=== PATIENT | female | born 1970 | race Caucasian/White ===

== ENCOUNTER 2020-07-02 11:35 | Inpatient (IN) | payer MEDICAID, SELFPAY ==
[~2020-07-02] VITALS: Ht 157.5 cm; Wt 65.8 kg
[2020-07-02 11:39] VITALS: BP 144/85
--- NOTE | 2020-07-02 11:43 | NUR ---
Dante sy in [facility] - 07/02/20 at 1145 by MERT Patient ambulated to bed 03 with steady/even gait.
--- NOTE | 2020-07-02 11:45 | NUR ---
Patient ambulated to bed 3. RN evaluating the patient at bedside.
--- NOTE | 2020-07-02 11:46 | NUR ---
Patient ambulated to restroom for urine sample collection.
--- NOTE | 2020-07-02 11:50 | NUR ---
50 y/o F coming in from home with c/c abdominal pain, N/V, and dysuria. Patient states abdominal pain since 03/13/2020 with history of acid reflux. Pt states she took prescribed Prilosec without relief. Patient describes abdominal pain epigastric region, 8/10, pulsating/intermittent that radiates to her back. Patient states associated N/V x 2 episodes clear/yellow, denies any blood in emesis. Patient states dysuria yesterday AM and fever last night but denied pain last night. Pt denies dizziness, headache, other urinary symptoms, chest pain. Oral temperature 97.9. Last BM today; pt states small bowel movement "slight constipation." Pt placed onto gown, quality assurance monitor body. Blood pressure 163/97. Bowel sounds normoactive x 4 quadrants. Bed locked in lowest position, side rails x 1, call light in reach. PMH: Acid reflux Meds: Prilosec NKA Sx: Denies
--- NOTE | 2020-07-02 11:55 | NUR ---
Dr. Lindsey is evaluating patient at bedside.
[2020-07-02] MEDS ORDERED: MORPHINE SULFATE 4 MG/ML SYR IVP ONE (12:05)
[2020-07-02] MEDS ORDERED: ONDANSETRON 4 MG/2 ML VIAL IVP ONE (12:05)
[2020-07-02] MEDS ORDERED: NACL 0.9% 1,000 ML IV SCH (12:05)
--- NOTE | 2020-07-02 12:13 | NUR ---
ULTRASOUND AT BEDSIDE
[2020-07-02 12:56] LABS: BASOPHILS % (AUTO) 0.5 % (0.0-2.0); EOSINOPHILS # (AUTO) 0.2 K/uL (0-0.4); EOSINOPHILS % (AUTO) 2.9 % (0.0-4.0); HEMATOCRIT 37.8 % (36-48); HEMOGLOBIN 12.8 g/dL (12.0-16.0); LYMPHOCYTES # (AUTO) 1.5 K/uL (2.5-16.5); LYMPHOCYTES % (AUTO) 20.7 % (20.5-51.1); MEAN CORPUSCULAR HEMOGLOBIN 31 pg (27-31); MEAN CORPUSCULAR HGB CONC 34 g/dL (33-37); MEAN CORPUSCULAR VOLUME 91.8 fL (80-94); MONOCYTES # (AUTO) 0.7 K/uL (0.8-1.0); NEUTROPHILS # (AUTO) 4.8 K/uL (1.8-7.7); NEUTROPHILS % (AUTO) 65.9 % (42.2-75.2); PLATELET COUNT (AUTO) 258 K/uL (140-450); RED BLOOD CELL COUNT(AUTO) 4.12 MIL/uL (4.20-5.40); RED CELL DISTRIBUTION WIDTH 14.7 % (11.6-13.7); WHITE BLOOD COUNT (AUTO) 7.3 K/uL (4.8-10.8)
--- NOTE | 2020-07-02 13:00 | NUR ---
Patient resting in position of comfort; semi-fowlers. Patient denies any nausea at this time and states pain /10. nuclear monitoring technician remains in place. Respirations even/unlabored. Bed locked in lowest position, side rails x 1, call light in reach.
--- NOTE | 2020-07-02 13:00 | NUR ---
LAB AT BEDSIDE
--- NOTE | 2020-07-02 13:00 | NUR ---
Urine sample, Covid inocente swab, and blood samples handed to faby Locke in patient bed 03.
[2020-07-02 13:07] LABS: ALBUMIN 3.9 g/dL (3.4-5.0); ANION GAP 12.6 (8-16); CARBON DIOXIDE 26.2 mmol/L (21-32); CREATININE 0.6 mg/dL (0.6-1.3); POTASSIUM 3.8 mmol/L (3.5-5.1); TOTAL BILIRUBIN 0.9 mg/dL (0.0-1.0)
[2020-07-02 13:22] LABS: APPEARANCE,URINE CLEAR (CLEAR); BILIRUBIN,URINE NEGATIVE (NEGATIVE); BLOOD, URINE NEGATIVE (NEGATIVE); COLOR,URINE YELLOW (YELLOW); LEUKOCYTE ESTERASE ,URINE 1+ (NEGATIVE); NITRITE, URINE NEGATIVE (NEGATIVE); PH,URINE 7.5 (5.0-9.0); UGLUCOSE NEGATIVE (NEGATIVE)
--- NOTE | 2020-07-02 13:28 | NUR ---
Patient ambulated to restroom with steady/even gait.
--- NOTE | 2020-07-02 13:28 | NUR ---
Patient states pain 4/10; denies any nausea at this time. hall monitor remains in place. Bed locked in lowest position, side rails x 1, call light in reach.
[2020-07-02 13:30] LABS: RBC,URINE NONE SEEN /HPF (0-5); WBC,URINE 0-5 /HPF (0-5)
[2020-07-02] MEDS ORDERED: DEXT 5% / NACL 0.9% 1,000 ML IV ONE (13:55)
[2020-07-02] MEDS ORDERED: OMEP20EC11 PO (14:34)
--- NOTE | 2020-07-02 14:34 | NUR ---
Dr. Ramon notified of requested consultation.
--- NOTE | 2020-07-02 14:40 | NUR ---
Attempted to contact LUIS FELIPE Crowe via telephone for report; advised she is on lunch break and to call back in 30 minutes ([phone]).
--- NOTE | 2020-07-02 14:41 | NUR ---
Patient resting in position of comfort; semi-fowlers. Patient denies any nausea and pain; 0/10 at this time. monitor car operator remains in place. Respirations even/unlabored. Bed locked in lowest position, side rails x 1, call light in reach.
--- NOTE | 2020-07-02 15:14 | NUR ---
Report given to LUIS FELIPE Crowe via telephone.
--- NOTE | 2020-07-02 15:35 | NUR ---
Patient will be admitted to care of Dr. Roblero. Admited to Med/Surg. Will go to room 106-B. Belongings list completed. Report to LUIS FELIPE Crowe.
--- NOTE | 2020-07-02 15:45 | NUR ---
REC' PT FROM ED. BENGALI SPEAKING A/OX4. RA. ABD SOFT NON TENDER. NO PERIPHERAL EXTREMITY EDEMA. DENIES PAIN AT THIS TIME, HAS PERSONAL BELONGINGS AT BEDSIDE. CAN AMBULATE TO RESTROOM. CURRENTLY NPO. R.AC 20G DRY, CLEAN,INTACT, WILL CONTINUE TO MONITOR
[2020-07-02] MEDS ORDERED: ZOLPIDEM 5 MG TAB PO PRN (16:00)
[2020-07-02] MEDS ORDERED: guaiFENesin DM 200/20 MG-10 ML 10 ML UDC PO PRN (16:00)
[2020-07-02] MEDS ORDERED: ACETAMINOPHEN 325 MG TAB PO PRN (16:00)
[2020-07-02] MEDS ORDERED: DOCUSATE SODIUM 100 MG GELCAP PO PRN (16:00)
[2020-07-02] MEDS ORDERED: POTASSIUM CHLORIDE 10 MEQ TABER PO PRN (16:00)
[2020-07-02] MEDS ORDERED: HYDROcodone/APAP 7.5/325 MG 1 TAB PO PRN (16:00)
[2020-07-02 17:15] LABS: FREE T4 (FREE THYROXINE) 0.88 ng/dL (0.76-1.46); MAGNESIUM 2.4 mg/dL (1.8-2.4); PHOSPHORUS 4.2 mg/dL (2.5-4.9); THYROID STIMULATING HORMONE 1.7 uIU/mL (0.34-3.74)
[2020-07-02 17:28] LABS: BARBITURATE, URINE NEGATIVE ng/ml (NEG <=200); BENZODIAZEPINE, URINE NEGATIVE ng/mL (NEG <=200); CANNABINOID, URINE NEGATIVE ng/mL (NEG <=50); COCAINE, URINE NEGATIVE ng/mL (NEG <=300); OPIATE, URINE NEGATIVE ng/mL (NEG <=2000); PHENCYCLIDINE SCREEN,URINE NEGATIVE ng/mL (NEG <=25)
[2020-07-02 17:38] LABS: BASOPHILS % (AUTO) 0.5 % (0.0-2.0); EOSINOPHILS # (AUTO) 0.1 K/uL (0-0.4); EOSINOPHILS % (AUTO) 1.9 % (0.0-4.0); HEMATOCRIT 36.5 % (36-48); HEMOGLOBIN 12.3 g/dL (12.0-16.0); LYMPHOCYTES # (AUTO) 1.7 K/uL (2.5-16.5); LYMPHOCYTES % (AUTO) 22.4 % (20.5-51.1); MEAN CORPUSCULAR HEMOGLOBIN 31 pg (27-31); MEAN CORPUSCULAR HGB CONC 34 g/dL (33-37); MEAN CORPUSCULAR VOLUME 92.1 fL (80-94); MONOCYTES # (AUTO) 0.8 K/uL (0.8-1.0); MONOCYTES % (AUTO) 11.3 % (1.7-9.3); NEUTROPHILS # (AUTO) 4.8 K/uL (1.8-7.7); NEUTROPHILS % (AUTO) 63.9 % (42.2-75.2); PLATELET COUNT (AUTO) 241 K/uL (140-450); RED BLOOD CELL COUNT(AUTO) 3.97 MIL/uL (4.20-5.40); RED CELL DISTRIBUTION WIDTH 14.7 % (11.6-13.7); WHITE BLOOD COUNT (AUTO) 7.5 K/uL (4.8-10.8)
--- NOTE | 2020-07-02 17:50 | NUR ---
COLLECTED MRSA L/R NARES. SUBMITTED TO LAB
--- NOTE | 2020-07-02 19:10 | NUR ---
ENDORSED PT TO COAL PICKER NURSE, RA. PT STABLE. NO SIGN OF DISTRESS . CALL LIGHT WITHIN REACH. ALL SAFETY MEASURES IN PLACE
--- NOTE | 2020-07-02 19:38 | NUR ---
RECEIVED BEDSIDE ENDORSEMENT FROM AM SHIFT RN. AAOX4, ON ROOM AIR, AMBULATORY, DENIES PAIN, SALINE LOCK, SAFETY MEASURES IN PLACE, PLAN OF CARE DISCUSSED, CALL LIGHT WITHIN REACH.
[2020-07-02 20:00] VITALS: BP 124/85
[2020-07-02] MEDS: ONDANSETRON 4 MG/2 ML VIAL IM/IVP PRN (20:11)
--- NOTE | 2020-07-02 21:21 | NUR ---
RECEIVED A CALL FROM MORRIS FROM NUCLEAR MED, HE SAID THAT HE WILL DO HIDA SCAN TOMORROW 07/03/20 AT 0800.
--- NOTE | 2020-07-03 00:16 | NUR ---
PT ASLEEP, RESPIRATION EVEN AND UNLABORED, NOTED CHEST RISE, CALL LIGHT WITHIN REACH.
--- NOTE | 2020-07-03 02:04 | NUR ---
SLEEPING, CHEST RISE NOTED, KEPT WARM AND COMFORTABLE, CALL LIGHT WITHIN REACH.
[2020-07-03 04:00] VITALS: BP 107/69
--- NOTE | 2020-07-03 04:00 | NUR ---
V/S TAKEN, TRIED TO OBTAIN CONSENT, PT SAID THAT SHE WANTS TO TALK TO THE DR FIRST BEFORE SHE WILL SIGN.
[2020-07-03 06:34] LABS: BASOPHILS % (AUTO) 0.5 % (0.0-2.0); EOSINOPHILS # (AUTO) 0.2 K/uL (0-0.4); EOSINOPHILS % (AUTO) 2.9 % (0.0-4.0); HEMATOCRIT 37.9 % (36-48); HEMOGLOBIN 12.6 g/dL (12.0-16.0); LYMPHOCYTES # (AUTO) 1.9 K/uL (2.5-16.5); LYMPHOCYTES % (AUTO) 22.8 % (20.5-51.1); MEAN CORPUSCULAR HEMOGLOBIN 31 pg (27-31); MEAN CORPUSCULAR HGB CONC 33 g/dL (33-37); MEAN CORPUSCULAR VOLUME 92.8 fL (80-94); MONOCYTES # (AUTO) 0.9 K/uL (0.8-1.0); MONOCYTES % (AUTO) 11.1 % (1.7-9.3); NEUTROPHILS # (AUTO) 5.1 K/uL (1.8-7.7); NEUTROPHILS % (AUTO) 62.7 % (42.2-75.2); PLATELET COUNT (AUTO) 256 K/uL (140-450); RED BLOOD CELL COUNT(AUTO) 4.09 MIL/uL (4.20-5.40); WHITE BLOOD COUNT (AUTO) 8.2 K/uL (4.8-10.8)
--- NOTE | 2020-07-03 06:54 | NUR ---
SLEEPING, AROUSABLE TO VERBAL, ALL NEEDS ATTENDED, KEPT COMFORTABLE, NO ACUTE CHANGES OVERNIGHT, CALL LIGHT WITHIN REACH.
--- NOTE | 2020-07-03 07:05 | NUR ---
RECEIVED REPORT FROM NIGHT NURSE FOR CONTINUITY OF CARE. PT IS STABLE. PT SITTING BY THE SIDE OF THE BED, NO SIGNS OF DISTRESS NOTED. PT ON ROOM AIR. PT HAS RAC 20G SALINE LOCK. SAFETY MEASURES IN PLACE, WILL CONTINUE TO MONITOR.
--- NOTE | 2020-07-03 07:16 | NUR ---
PT STABLE, BEDSIDE ENDORSEMENT GIVEN TO AM SHIFT RN FOR CONTINUITY OF CARE. ALSO ENDORSED NOT TO GIVE ANY OPIOIDS BEFORE THE HIDA SCAN PROCEDURE.
[2020-07-03 07:25] LABS: ANION GAP 11.1 (8-16); CARBON DIOXIDE 26.8 mmol/L (21-32); CREATININE 0.7 mg/dL (0.6-1.3); POTASSIUM 3.9 mmol/L (3.5-5.1)
[2020-07-03 08:00] VITALS: BP 145/98
[2020-07-03 08:08] LABS: T4 (THYROXINE) 6.9 ug/dL (4.5-12.0)
--- NOTE | 2020-07-03 08:10 | NUR ---
RECEIVED VERBAL ORDER FROM DR TALAVERA TO CANCEL THE HIDA SCAN. NOTIFIED NUCLEAR Schoo TECH AND INPUT THE ORDER.
--- NOTE | 2020-07-03 08:33 | NUR ---
RECEIVED FNS REFERRAL FOR NAUSEA >3 DAYS AND VOMITING >3 DAYS, NOT ACCURATE. PER MD'S NOTE PATIENT HAD VOMITING X1 DAY. PATIENT HAS BEEN SCREENED AND CATEGORIZED LOW NUTRITION RISK. PATIENT WILL BE SEEN WITHIN 7 DAYS OF ADMISSION. 07/09/[address]
--- NOTE | 2020-07-03 08:58 | NUR ---
DC PLANNIN YRS OPLD FEMALE PATIENT WAS ADMITTED FROM HOME WITH A DXOF ACUTE CHOLECYSTITIS. PT HAS A HX OF GERD. CXR AND RAPID COVID TEST NEGATIVE. GB ULTRASOUND SHOWED ACUTE CHOLECYSTITIS. ADMINISTERED IVF, IV ABX ROCEPHIN AND PAIN MEDS. CONSULTED WITH DR TALAVERA SURGEON FOR POSSIBLE LAP DESIREE. DC PLAN TO GO HOME WHEN STABLE. CM TO FOLLOW
[2020-07-03] MEDS: PANTOPRAZOLE 40 MG TABEC PO SCH (09:00)
[2020-07-03] MEDS ORDERED: LIDOCAINE 1% 500 MG/50 ML VIAL ONE (09:10)
[2020-07-03] MEDS ORDERED: BUPIVACAINE-MPF/EPI 0.5% 30 ML VIAL INJ ONE (09:17)
[2020-07-03] MEDS ORDERED: SUCCINYLCHOLINE CHLORIDE 200 MG/10 ML VIAL IVP ONE (09:45)
[2020-07-03] MEDS ORDERED: LIDOCAINE 2% 100 MG/5 ML SYR IVP ONE (09:45)
[2020-07-03] MEDS ORDERED: KETOROLAC 30 MG/ML VIAL ONE (09:45)
[2020-07-03] MEDS ORDERED: ROCURONIUM 50 MG/5 ML VIAL IV ONE (09:45)
[2020-07-03] MEDS ORDERED: MIDAZOLAM 2 MG/2 ML VIAL ONE (09:45)
[2020-07-03] MEDS ORDERED: SUGAMMADEX SODIUM 200 MG/2 ML VIAL IV ONE (09:45)
[2020-07-03] MEDS ORDERED: fentaNYL citrate 0.05 MG/ML VIAL ONE (09:45)
[2020-07-03] MEDS ORDERED: DEXAMETHASONE 4 MG/ML VIAL ONE (09:45)
[2020-07-03] MEDS ORDERED: SEVOFLURANE 250 ML BTL INH ONE (09:45)
[2020-07-03] MEDS ORDERED: PROPOFOL 200 MG/20 ML VIAL IV ONE (09:45)
[2020-07-03] MEDS ORDERED: METOCLOPRAMIDE 10 MG/2 ML INJ VIAL ONE (09:45)
[2020-07-03] MEDS ORDERED: diphenhydrAMINE 50 MG/ML VIAL IVP PRN (10:40)
[2020-07-03] MEDS ORDERED: HYDROmorphone 1 MG/ML AMP IVP PRN ×3 (10:40→15:00)
[2020-07-03] MEDS ORDERED: ONDANSETRON 4 MG/2 ML VIAL IVP PRN (10:40)
[2020-07-03] MEDS ORDERED: MEPERIDINE 25 MG/ML SYR IVP PRN (10:40)
[2020-07-03] MEDS ORDERED: HYDROcodone/APAP 5/325 MG 1 TAB TAB PO PRN ×2 (10:40→19:45)
[2020-07-03] MEDS ORDERED: MEPERIDINE 25 MG/ML SYR ONE (10:53)
--- NOTE | 2020-07-03 11:20 | NUR ---
RECEIVED PT FROM OR NURSE. PT IS S/P CHOLECYSTECTOMY. PT HAS 4 ABD INCISION WITH ÁLVARO MARTINEZ. PT ON LR AT 120 ML/H, WILL CONTINUE TO MONITOR
[2020-07-03] MEDS: LACTATED RINGERS 1,000 ML IV SCH ×2 (11:25→19:00)
--- NOTE | 2020-07-03 11:28 | NUR ---
SOCIAL WORK NOTE: Patient's Orientation Unable To Assess Information Provided By AYAN ANTOINE - SON Comments SW WAS UNABLE TO MEET PATIENT AT BEDSIDE. SW COMPLETED ASSESSMENT WITH PATIENT'S SON. Facility Supervisor, Realtionship and Phone Number AYAN CASTRO [phone] [facility] Power of Health Care Manager No Does Patient Have a POLST No Identifying Problems No Social Work Triggers Is A Social Work Consult Needed No Mandate Report Filed No Explanation Of Identifying Problems PATIENT IS A 50-YEAR-OLD FEMLAE ADMITTED FOR ACUTE CHOLECYSTITIS. PATIENT HAS PMHX OF GERD. PATIENT'S SON REPORTED NO HX OF MENTAL HEALTH OR SUBSTANCE ABUSE. Admitted From Home Pre-Admission Level Of Functioning Status Independent/Ambulatory Prior Resources/Services Used In Last 12 Months No Prior Resources Used Prior DME No Prior DME Used Dialysis Comments N/A Living Situation Lives With Family House Patient Had Caregiver No Home Support No Caregiver Issues Financial Issues No Known Financial Issue Referral To The Financial Counselor Needed No Factors/Needs No D/C Needs Identified Pt/Rep Participated In Discharge Plan Yes Patient/Family Agress With Discharge Plan Yes Discharge Plan Comments TENTATIVE DISCHARGE PLAN IS FOR PATIENT TO RETURN HOME. DC Plan Status Initiated
--- NOTE | 2020-07-03 11:35 | NUR ---
ADMINISTERED DILAUDID FOR ABD PAIN 10/10, MEDICATION EDUCATION PROVIDED. EDUCATED PT ON USE OF INCENTIVE SPIROMETER. PT DEMONSTRATED USAGE. PT TOLERATED WELL, WILL CONTINUE TO MONITOR.
--- NOTE | 2020-07-03 13:32 | NUR ---
ADMINISTERED SCHEDULED MEDICATION, MEDICATION EDUCATION PROVIDED. PT VERBALIZED UNDERSTANDNG, PT TOLERATED WELL. WILL CONTINUE TO MONITOR.
--- NOTE | 2020-07-03 14:26 | NUR ---
ADMINISTERED NORCO FOR ABD PAIN, 08/21. MEDICATION EDUCATION PROVIDED. PT TOLERATED WELL. WILL CONTINUE TO MONITOR.
--- NOTE | 2020-07-03 15:28 | NUR ---
PT CONTINUES TO HAVE ABDOMINAL PAIN, NOTIFIED DR MCKEON, AWAITING ORDERS. WILL CONTINUE TO MONITOR.
--- NOTE | 2020-07-03 15:42 | NUR ---
RECEIVED TORB FROM DR MCKEON TO CHANGE DILAUDID Q4H PRN AND GIVE NOW. WILL INPUT ORDER AND CARRY IT OUT.
[2020-07-03] MEDS: HYDROmorphone 1 MG/ML AMP IVP PRN ×2 (15:57→20:51)
[2020-07-03 16:00] VITALS: BP 148/86
--- NOTE | 2020-07-03 16:02 | NUR ---
ADMINISTERED DILAUDID FOR SEVERE ABD PAIN, MEDICATION EDUCATION PROVIDED. PT VERBALIZED UNDERSTANDING. WILL CONTINUE TO MONITOR.
--- NOTE | 2020-07-03 19:20 | NUR ---
NOTIFIED DR MCKEON PT NEEDS MORE PAIN COVERAGE. PT IS REQUESTING PAIN MEDICATION AND SHE ONLY HAS DILAUDID PRN Q4H AND NORCO Q6H, HER PAIN IS NOT COVERED. ENDORSE PT TO NIGHT NURSE FOR CONTINUITY OF CARE
[2020-07-03 20:00] VITALS: BP 154/87
--- NOTE | 2020-07-03 20:00 | NUR ---
PATIENT RECEIVED IN BED C/O PAIN IN HER ABD RELATED TO NEW SX DONE, 12/21, WE WERE STILL EXCHANGING SHIFT REPORT.
--- NOTE | 2020-07-03 20:01 | NUR ---
MESSAGE SENT TO DR. Mg MCKEON CONCERNING PAIN OF THE PATIENT, V/S WERE STATED TO THE MESSAGE 96.8 f, 18, 78, 154/87, 97% RA.
--- NOTE | 2020-07-03 20:05 | NUR ---
MADE NEW ORDER TO TITRATE FREQUENCY OF NORCO 5/325 MG FROM Q 6 HOUR TO Q 4 HOURS, PATIENT WAS MEDICATED WITH 1 DOSE OF NORCO 5/325 MG BY MOUTH. TO F/U AFTER AN HOUR.
--- NOTE | 2020-07-03 20:11 | NUR ---
NSS 1 LITER WAS REPLACED NEW BAG.
[2020-07-03] MEDS: ONDANSETRON 4 MG/2 ML VIAL IM/IVP PRN (20:55)
[2020-07-04] MEDS: HYDROmorphone 1 MG/ML AMP IVP PRN ×4 (02:50→20:17)
[2020-07-04] MEDS: ONDANSETRON 4 MG/2 ML VIAL IM/IVP PRN ×3 (02:56→20:34)
[2020-07-04] MEDS: LACTATED RINGERS 1,000 ML IV SCH ×3 (03:13→23:31)
[2020-07-04 04:00] VITALS: BP 12/68
[2020-07-04 07:13] LABS: BASOPHILS % (AUTO) 0.1 % (0.0-2.0); HEMATOCRIT 34.7 % (36-48); HEMOGLOBIN 11.6 g/dL (12.0-16.0); LYMPHOCYTES # (AUTO) 1.7 K/uL (2.5-16.5); LYMPHOCYTES % (AUTO) 12.2 % (20.5-51.1); MEAN CORPUSCULAR HEMOGLOBIN 31 pg (27-31); MEAN CORPUSCULAR HGB CONC 34 g/dL (33-37); MEAN CORPUSCULAR VOLUME 91.4 fL (80-94); MONOCYTES # (AUTO) 1.6 K/uL (0.8-1.0); MONOCYTES % (AUTO) 11.6 % (1.7-9.3); NEUTROPHILS # (AUTO) 10.4 K/uL (1.8-7.7); NEUTROPHILS % (AUTO) 76.1 % (42.2-75.2); PLATELET COUNT (AUTO) 258 K/uL (140-450); RED CELL DISTRIBUTION WIDTH 14.5 % (11.6-13.7); WHITE BLOOD COUNT (AUTO) 13.6 K/uL (4.8-10.8)
[2020-07-04 07:25] LABS: ANION GAP 11.5 (8-16); CARBON DIOXIDE 24.3 mmol/L (21-32); CREATININE 0.6 mg/dL (0.6-1.3); POTASSIUM 3.8 mmol/L (3.5-5.1)
[2020-07-04 08:00] VITALS: BP 127/78
--- NOTE | 2020-07-04 08:00 | NUR ---
RECEIVED BEDSIDE REPORT FROM DAY SHIFT NURSE. PATIENT IS AWAKE, ALERT, AND COOPERATIVE. RESPIRATION EVEN UNLABORED ON ROOM AIR. NO DISTRESS NOTED. SKIN IS WARM AND DRY. PATIENT IS S/P LAP DESIREE POD#1 WITH 3 INCISION NOTED IN ABD NO SWELLING, REDNESS, AND DRAINAGE NOTED. IV PATENT AND INTACT. PLAN OF CARE WAS DISCUSSED. ALL SAFETY MEASURES IN PLACE. BED IS AT LOW POSITION.
[2020-07-04] MEDS: PANTOPRAZOLE 40 MG TABEC PO SCH (08:11)
--- NOTE | 2020-07-04 08:15 | NUR ---
ALL SCHEDULED MED GIVEN PER ORDER. PATIENT COMPLAINED OF 9/10 ABDOMINAL PAIN. PRN PAIN MED ADMINISTER PER ORDER. WILL CONTINUE TO MONITOR
--- NOTE | 2020-07-04 10:05 | NUR ---
IV FLAGYL GIVEN PER MD ORDER. WILL CONTINUE TO MONITOR.
[2020-07-04] MEDS: metroNIDAZOLE 500 MG/NS PREMIX 100 ML IV SCH ×2 (10:12→20:33)
--- NOTE | 2020-07-04 13:55 | NUR ---
PROVIDED WOUND CARE
--- NOTE | 2020-07-04 14:38 | NUR ---
PRN DILAUDID ADMINISTERED FOR ABD PAIN 10/21.
--- NOTE | 2020-07-04 14:46 | NUR ---
PRN ZOFRAN ALSO ADMINISTERED DUE TO PT COMPLAINT OF NAUSEA.
--- NOTE | 2020-07-04 19:46 | NUR ---
RECEIVED PT AAOX4 , NID - O2 SAT WNL , S/P LAP CHOLECYSTECTOMY - C/O PAIN - WILL MEDICATE . ABDL . INCISSIONS - GLUED AND INTACT - PROCEDURE ANALYST . IV SITE INTACT AND PATENT . SAFETY MEASURES IN PLACE . CALL LIGHT WITHIN REACH . PLAN OF CARE DISCUSSED AND VERBALIZE UNDERSTANDING . WILL CONT. TO MONITOR
[2020-07-04 20:00] VITALS: BP 144/77
--- NOTE | 2020-07-05 | NUR ---
MADE ROUNDS , NO S/ SX OF ACUTE DISTRESS NOTED . WILL CONT. TO MONITOR .
[2020-07-05] MEDS: HYDROmorphone 1 MG/ML AMP IVP PRN ×3 (01:50→14:51)
[2020-07-05 04:00] VITALS: BP 132/70
--- NOTE | 2020-07-05 04:00 | NUR ---
MADE ROUNDS , BEARABLE PAIN PT'S SAID AT THIS TIME . WILL CONT. TO MONITOR . O 2SAT WNL - JUST MEDICATED W/ DILAUDID . WILL CONT. TO MONITOR .
[2020-07-05] MEDS: LACTATED RINGERS 1,000 ML IV SCH ×2 (04:20→12:40)
[2020-07-05] MEDS: metroNIDAZOLE 500 MG/NS PREMIX 100 ML IV SCH ×2 (04:45→13:48)
--- NOTE | 2020-07-05 05:42 | NUR ---
RESTING ON BED NO COMPLAIN MADE AT THIS TIME . CALL LIGHT WITHIN REACH .
[2020-07-05 06:13] LABS: BASOPHILS # (AUTO) 0.1 K/uL (0.00-0.22); BASOPHILS % (AUTO) 1.4 % (0.0-2.0); EOSINOPHILS # (AUTO) 0.1 K/uL (0-0.4); EOSINOPHILS % (AUTO) 1.2 % (0.0-4.0); HEMATOCRIT 33.6 % (36-48); HEMOGLOBIN 11.2 g/dL (12.0-16.0); LYMPHOCYTES # (AUTO) 2.4 K/uL (2.5-16.5); LYMPHOCYTES % (AUTO) 24.5 % (20.5-51.1); MEAN CORPUSCULAR HEMOGLOBIN 31 pg (27-31); MEAN CORPUSCULAR HGB CONC 33 g/dL (33-37); MEAN CORPUSCULAR VOLUME 92.2 fL (80-94); MONOCYTES # (AUTO) 1.3 K/uL (0.8-1.0); MONOCYTES % (AUTO) 13.5 % (1.7-9.3); NEUTROPHILS # (AUTO) 5.9 K/uL (1.8-7.7); NEUTROPHILS % (AUTO) 59.4 % (42.2-75.2); PLATELET COUNT (AUTO) 223 K/uL (140-450); RED BLOOD CELL COUNT(AUTO) 3.65 MIL/uL (4.20-5.40); RED CELL DISTRIBUTION WIDTH 14.9 % (11.6-13.7); WHITE BLOOD COUNT (AUTO) 9.9 K/uL (4.8-10.8)
[2020-07-05 06:55] LABS: ANION GAP 11.1 (8-16); CARBON DIOXIDE 26.5 mmol/L (21-32); CREATININE 0.6 mg/dL (0.6-1.3); POTASSIUM 3.6 mmol/L (3.5-5.1)
--- NOTE | 2020-07-05 07:15 | NUR ---
ENDORSED - PT - STABLE .
--- NOTE | 2020-07-05 07:15 | NUR ---
RECEIVED REPORT FROM NIGHT NURSE PT IS AAOX4, ON ROOM AIR, AMBULATORY, S/P LAP DESIREE WITH 4 INCISION DERMABOND OPEN TO AIR. IV INTACT ON RIGHT AC WITH LACTATED RINGERS 1000 ML AT 120 MLS/HR. DISCHARGE OK BY CONSULT DR TALAVERA. SAFETY MEASURES IN PLACE AND CALL LIGHT WITHIN REACH. WILL CONTINUE TO MONITOR.
[2020-07-05 08:00] VITALS: BP 139/88
[2020-07-05] MEDS: PANTOPRAZOLE 40 MG TABEC PO SCH (08:15)
--- NOTE | 2020-07-05 08:19 | NUR ---
MEDICATION DUE GIVEN AND CHECK VITAL SIGNS PRIOR TO MEDICATION SAMIR 139/88 MD 82 PT COMPLAINS OF ABDOMINAL PAIN 10/21. PAIN MEDICATION GIVEN.WILL CONTINUE TO MONITOR.
--- NOTE | 2020-07-05 11:30 | NUR ---
MADE ROUNDS PT IS SLEEPING NO DISTRESS NOTED. WILL CONTINUE TO MONITOR.
[2020-07-05] MEDS ORDERED: NITR100C7 PO (11:32)
--- NOTE | 2020-07-05 11:38 | NUR ---
PATIENT RESTING DENIES ANY PAIN, IV FLUIDS INFUSING WELL.
--- NOTE | 2020-07-05 15:10 | NUR ---
DISCHARGED INSTRUCTIONS GIVEN TO PATIENT AT BEDSIDE WITH TITLE CAMERA OPERATOR JOSE ID # [id number] ENCOURAGED TO FOLLOW UP WITH PCP IN 5 BUSINESS DAYS AND TO FOLLOW UP WITH DR TALAVERA IN 3-4 WEEKS, INSTRUCTED TO KEEP WOUND CLEAN AND DRY. INSTRUCTED TO CONTINUE MEDICATION PRESCRIBED AND TO SEEK MEDICAL HELP IN CASE OF EMERGENCIES. IV INTACT AND NO BLEEDING, REMOVED ID BANDS, CHANGED PT CLOTHES AND PT TOOK ALL HER BELONGINGS, ESCORTED TO FRONT LOBBY VIA WHEELCHAIR, PT IS GOING HOME ACCOMPANIED BY FAMILY PT IS STABLE.
== END 2020-07-05 15:10 | disposition home or self-care (01) | DRG 263 ==
LOC: MED 11:35 → MTU 13:58
PROVIDERS: ADMIT Family Medicine; ATTEND Family Medicine
PROC: 0FT44ZZ Resection of Gallbladder, Percutaneous Endoscopic Approach (ICD-10-PCS; principal; 2020-07-03 09:15)
DX: K80.00 Calculus of gallbladder with acute cholecystitis without obstruction (principal); K21.9 Gastro-esophageal reflux disease without esophagitis; N39.0 Urinary tract infection, site not specified; R74.01 Elevation of levels of liver transaminase levels; Z20.822 Contact with and (suspected) exposure to COVID-19; Z79.899 Other long term (current) drug therapy
CPT/HCPCS: 36415; 71045; 76705; 80048; 80053; 80305; 81001; 82150; 83036; 83605; 83690; 83735; 83880; 84100; 84436; 84439; 84443; 84479; 84484; 85025; 85610; 85730; 87040; 87081; 87086; 88304; 99285; J0330; J0694; J0696; J1100; J1170; J1885; J2001; J2175; J2250; J2270; J2405; J2704; J2765; J3010; J3490; J7030; J7060; J7120